=== PATIENT | female | born 1980 | race Hispanic/Latino ===

== ENCOUNTER 2022-11-08 23:23 | Emergency (ER) | payer BC ==
[~2022-11-08] VITALS: Ht 157.5 cm; Wt 109.8 kg
[2022-11-09] MEDS ORDERED: ONDANSETRON HCL INJ 2MG/ML 2ML 2 MG/ML VIAL IV STA (00:06)
[2022-11-09] MEDS ORDERED: LACTATED RINGER'S 1,000 ML IV ONE (00:15)
[2022-11-09] MEDS ORDERED: ONDANSETRON ODT4 MG PO (00:53)
[2022-11-09] MEDS ORDERED: ONDANSETRON HCL INJ 2MG/ML 2ML 2 MG/ML VIAL ONE (00:58)
[2022-11-09] MEDS ORDERED: LACTATED RINGER'S 1,000 ML ONE (00:58)
[2022-11-09] MEDS ORDERED: KETOROLAC TROMETHAMINE 30 MG/ML VIAL ONE (01:49)
[2022-11-09 02:09] VITALS: BP 150/98
[2022-11-09] MEDS ORDERED: KETOROLAC TROMETHAMINE 30 MG/ML VIAL IV ONE (06:00)
== END 2022-11-09 02:09 | disposition home or self-care (01) ==
LOC: FSED 23:29
DX: R11.2 Nausea with vomiting, unspecified (principal); R19.7 Diarrhea, unspecified; R51.9 Headache, unspecified
CPT/HCPCS: 80048; 81003; 81025; 85025; 99283; J1885; J2405; J7121